=== PATIENT | female | born 1960 | race Caucasian/White ===

== ENCOUNTER 2017-06-15 13:00 | Emergency (ER) | payer OTHER ==
[~2017-06-15] VITALS: Ht 170.2 cm; Wt 82.6 kg
[~2017-06-15 13:00] MED LIST: ASPIRIN81 M1 PO; CIPRO500 MG PO; CYMBALTA60 MG PO; DOLOPHINE HCL5 MG PO; IBUPROFEN800 MG PO; METHADONE10 MG PO; NEURONTIN300 MG PO; NICOTINE PATCH TD; OXYCODONE HCL30 MG PO; PROTONIX40 MG PO; XARELTO15 MG PO; ZESTRIL,PRINIVIL5 MG PO
[2017-06-15 14:59] LABS: HEMATOCRIT 34.7 % (36.0-46.0); MCH 24.1 PG (29.0-34.0); MCHC 29.7 G/DL (30.0-36.0); MCV 81.1 FL (83-99); MEAN PLAT.VOLUME 8.9 uM^3 (9.5-12.4); PLATELET COUNT 269 K/uL (156-360); RBC DIS.WIDTH-CV 20.8 % (11.8-14.6); RBC DIS.WIDTH-SD 61.1 % (39-53); RED BLOOD COUNT 4.28 M/uL (3.80-5.20); WHITE BLOOD COUNT 5.8 K/uL (4.1-10.2)
[2017-06-15 15:04] LABS: EOSINOPHIL (%) 1.2 % (0-5); EOSINOPHIL COUNT 0.1 K/uL (0-0.3); IMMATURE GRANULOCYTE (%) 0.3 % (0.0-0.7); INSTRUMENT ABS NEUTROPHIL CT 3.8 K/uL; MONOCYTE (%) 14.9 % (3-12); MONOCYTE COUNT 0.9 K/uL (0-0.8); NEUTROPHIL (%) 65.4 % (45-76); NEUTROPHIL COUNT 3.8 K/uL (1.8-6.4)
[2017-06-15 15:05] LABS: PROTHROMBIN TIME 11.2 SEC (10.2-12.9)
[2017-06-15 15:08] LABS: PTT 28.4 SEC (25-37)
[2017-06-15 15:09] LABS: CHLORIDE 99 mEq/L (99-109); POTASSIUM 4.6 mEq/L (3.7-5.4); SODIUM 140 mEq/L (136-147)
[2017-06-15 15:10] LABS: GLUCOSE 105 mg/dL (70-99)
[2017-06-15 15:12] LABS: ANION GAP 11 MEQ/L (2-14)
[2017-06-15 15:14] LABS: GFR ESTIMATE (CALCULATED) > 59 mL/min/
[2017-06-15 15:15] LABS: UREA NITROGEN (BUN) 13 mg/dL (9-23)
[2017-06-15 15:20] LABS: TROP-I INTERPRETATION NEGATIVE; TROPONIN-I < 0.01 ng/mL (0.0-0.30)
[2017-06-15 15:24] LABS: ADD MIUA? YES; BILIRUBIN NEGATIVE; BLOOD NEGATIVE; COLOR YELLOW ((YELLOW)); GLUCOSE (STRIP) NEGATIVE; KETONES NEGATIVE; LEUKOCYTES TRACE; NITRITE NEGATIVE; PROTEIN (STRIP) 30; SPECIFIC GRAVITY 1.012 (1.000-1.030); UROBILINOGEN 0.2 MG/DL (0.2-1.0)
[2017-06-15 15:30] LABS: BACTERIA RARE /HPF; EPITHELIAL CELLS RARE /HPF; GRANULAR CASTS 0-5 /LPF; HYALINE CASTS 0-5 /LPF; MUCUS TRACE /LPF; RED BLOOD CELLS 0-5 /HPF (0-5); UCUL ADDED? YES; WHITE BLOOD CELLS 15-20 /HPF (0-5)
[2017-06-15 15:30] LABS: AMPHETAMINE NEGATIVE (500 ng/mL); BARBITURATES NEGATIVE (200 ng/mL); BENZODIAZEPINES NEGATIVE (150 ng/mL); COCAINE NEGATIVE (150 ng/mL); INTERNAL CONTROLS VALID? YES; METHADONE PRESUMPTIVE POSITIVE (200 ng/mL); METHAMPHETAMINE NEGATIVE (500 ng/mL); OPIATES (MORPHINE) NEGATIVE (100 ng/mL); OXYCODONE PRESUMPTIVE POSITIVE (100 ng/mL); PHENCYCLIDINE NEGATIVE (25 ng/mL); PROPOXYPHENE NEGATIVE (300 ng/mL); THC CANNABINOIDS NEGATIVE (50 ng/mL); TRICYCLIC ANTIDEPRESSANTS NEGATIVE (300 ng/mL)
[2017-06-15] MEDS ORDERED: CIPRO500 MG PO (16:19)
[2017-06-15 16:33] VITALS: BP 161/89
== END 2017-06-15 16:34 | disposition home or self-care (01) ==
LOC: EME 13:00
PROVIDERS: Emergency Medicine
DX: N39.0 Urinary tract infection, site not specified (principal); R53.1 Weakness; R42 Dizziness and giddiness; Z88.0 Allergy status to penicillin; Z86.718 Personal history of other venous thrombosis and embolism; Z87.891 Personal history of nicotine dependence
CPT/HCPCS: 71020; 80048; 81003; 84484; 85025; 85610; 85730; 87077; 87086; 87186; 93005; 99281; 99284